=== PATIENT | female | born 1945 | race Caucasian/White ===

== ENCOUNTER 2019-12-06 09:33 | Outpatient (CLI) | payer MEDICARE, OTHER, SELFPAY ==
--- NOTE | ~2019-12-06 | MM_ITS ---
EXAMINATION: MM screening [facility] BI w nasir HISTORY: Screening mammogram TECHNIQUE: Craniocaudal and mediolateral oblique 3-D tomosynthesis images were obtained and synthetic 2-D images were generated. CAD analysis was submitted and interpreted. COMPARISON: 05/24/2018, 03/21/2017, 10/08/2015 bilateral digital screening mammogram examinations BREAST PARENCHYMAL COMPOSITION: There are scattered areas of fibroglandular density....... FINDINGS: Stable mild fibroglandular asymmetry. There is no evidence of suspicious mass, calcificatio n, or architectural distortion to suggest malignancy in either breast. There has been no suspicious i nterval change. IMPRESSION: 1. No mammographic evidence of malignancy. 2. Recommend routine screening mammography in one year. BI-RADS Category 2: Benign finding(s). Reviewed, dictated and finalized at location A.
--- NOTE | ~2019-12-06 | DEXA_ITS ---
Bone Density Report Name: Gwen Barreto Age: 74 Sex: Female Ethnicity: White Date of : 1945 Indication: postmenopausal; height loss; cancer; hysterectomy; Referring Provider: Claudia Diaz Study: Bone densitometry was performed. Exam Date: December 06, 2019 Accession number: [id number] Bone Density: Region BMD T-score Z-score Classification AP Spine (L1, L2) 1.220 2.2 4.3 Normal World Health Organization criteria for BMD impression classify patients as: Normal (T-score at or above -1.0), Osteopenia (T-score between -1.0 and -2.5), or Osteoporosis (T-score at or below -2.5). Previous Exams: Region Exam Age BMD T-score BMD Change BMD Change Date g/cm2 vs Baseline vs Previous AP Spine(L1, L2) 12/06/2019 74 1.220 2.2 0.149(13.9%)# 0.081(7.1%)# 04/10/2013 68 1.140 1.5 0.068(6.3%)# 0.055(5.1%)# 12/07/2010 65 1.085 1.0 0.013(1.2%) 0.013(1.2%) 11/21/2007 62 1.072 0.8 *Denotes significance at 95% confidence level, LSC for AP Spine = 0.022 g/cm2 Clinical Information Provided by Patient: Has used the following medications: Vitamin D, Calcium Has the following medical conditions: Cancer, Hysterectomy Patient maximum height was 66 Menopause Age: 31 Drinks caffeinated beverages Onset of menses at age 13 Number of children 2 Impression: The patient has normal bone mass. No significant bone loss was observed. Discussion: LOW RISK OF FRACTURE; BONE DENSITY IS WELL ABOVE THE MINIMUM DESIRABLE LEVEL AND ABOVE AVERAGE FOR AGE AND SEX AT ALL SKELETAL SITES TESTED. This person's bone density is above expected limits for age and sex. This is rarely clinically significant, but should be pursued if there are significant musculoskeletal complaints. The patient should follow a healthful lifestyle (good nutrition with adequate calcium and vitamin D, and appropriate weight-bearing exercise). Follow-Up: Consider repeating this study in 5 years or sooner if there is some new clinical indication. Reported by: ANTOINETTE on 12/06/2019 10:04:00 AM. Reviewed, dictated and finalized at location [facility]
== END 2019-12-06 09:34 | disposition home or self-care (01) ==
PROVIDERS: PCP Family Medicine; Visit Provider Family Medicine
DX: Z12.31 Encounter for screening mammogram for malignant neoplasm of breast (principal); Z78.0 Asymptomatic menopausal state
CPT/HCPCS: 77063; 77067; 77080

== ENCOUNTER 2020-10-05 13:41 | Outpatient (CLI) | payer MEDICARE, OTHER, SELFPAY ==
--- NOTE | 2020-10-05 13:56 | ECG_ITS ---
Measurements Intervals [place] Rate: 66 P: 69 TX: 192 QRS: 29 QRSD: 100 T: 45 QT: 393 QTc: 414 Interpretive Statements SINUS RHYTHM INCOMPLETE RIGHT BUNDLE BRANCH BLOCK BASELINE ARTIFACT- I, II, III, AVR, AVL, AVF, V4-V6 BORDERLINE ECG Electronically Signed On 10-05-2020 14:47:44 WATER POLLUTION CONTROL TECHNICIAN by Kenan Castillo D.O.
[2020-10-05 14:40] LABS: Basophils Percent Auto 1.1 % (0.2-1.2); Eosinophils Absolute Auto 0.2 K/mm3 (0-0.3); Hematocrit 37.7 % (37.0-47.0); Hemoglobin 12.4 g/dL (12.0-15.0); Immature Granulocyte Absolute 0.01 K/mm3 (0.00-0.031); Immature Granulocyte Percent A 0.3 % (0-0.5); Lymphocytes Absolute Auto 0.89 K/mm3 (0.9-3.2); Mean Corpuscular HGB Conc 32.9 g/dl (32-36); Mean Corpuscular Hemoglobin 30.9 pg (26-34); Monocytes Absolute Auto 0.4 K/mm3 (0.1-0.6); Monocytes Percent Auto 10.2 % (2.6-8.5); Neutrophils Absolute Auto 2.2 K/mm3 (1.3-6.7); Neutrophils Percent Auto 60.4 % (45.5-73.1); Platelet Count Result 176 k/mm3 (150-375); Red Blood Count 4.01 M/mm3 (4.2-5.4); Red Cell Distribution Width 12.9 % (11.5-14.5); White Blood Count 3.7 K/mm3 (4.5-10.0)
[2020-10-05 14:54] LABS: Alanine Aminotransferase 22 U/L (4-35); Albumin Level 3.6 g/dL (3.5-5.1); Alkaline Phosphatase 53 U/L (38-126); Anion Gap 2 mmol/L (8-16); Aspartate Amino Transferase 27 U/L (14-36); Bilirubin,Total 0.6 mg/dL (0.2-1.3); Blood Urea Nitrogen 20 mg/dL (7-17); Calcium 8.3 mg/dL (8.4-10.2); Carbon Dioxide 30 mmol/L (22-30); Chloride 108 mmol/L (98-107); Estimated Glomerular Filt Rate > 60; Glucose 171 mg/dL (65-105); Potassium 3.7 mmol/L (3.4-5.0); Sodium 140 mmol/L (137-145)
== END 2020-10-05 13:42 | disposition home or self-care (01) ==
PROVIDERS: PCP Family Medicine; Visit Provider Physician Assistant Medical
DX: D72.819 Decreased white blood cell count, unspecified (principal); E78.2 Mixed hyperlipidemia; R42 Dizziness and giddiness; R07.9 Chest pain, unspecified; I45.10 Unspecified right bundle-branch block
CPT/HCPCS: 36415; 80053; 84443; 85025; 93005

== ENCOUNTER 2020-10-28 07:23 | Outpatient (CLI) | payer MEDICARE, OTHER, SELFPAY ==
--- NOTE | 2020-10-28 07:34 | ECHO_ITS ---
Patient Info Name: Gwen Barreto Age: 75 years : 1945 Gender: Female Ht: 65 in Wt: 240 lbs BSA: 2.29 m2 HR: 62 bpm BP: 137 / 87 mmHg Technical Quality: Good Exam Date: 10/28/2020 7:46 AM Exam Location: [facility] Patient Status: Outpatient Admit Date: 10/28/2020 Staff Ordering Physician: Claudia Diaz PAC Orthopedics Nurse: Justin Chandra RDCS, RT Attending Provider: Claudia Diaz PAC Referring Physician: Joe DAVIS; Exam Type: CA echo doppler color flow Study Info Indications R01.1 - Cardiac murmur, unspecified Complete two-dimensional, color flow and Doppler transthoracic echocardiogram is performed. Strain analysis performed. Summary 1. Complete two-dimensional, color flow and Doppler transthoracic echocardiogram is performed. 2. Left ventricular chamber dimension is normal. 3. Left ventricular systolic function is normal, estimated at 60-65%. 4. There is mildly increased left ventricular wall thickness. 5. The left ventricular diastolic function is grade I diastolic dysfunction. 6. E/e' 7 is not elevated. 7. Global longitudinal strain is normal at -17.6%. 8. The mitral valve has mildly calcified annulus. 9. There is mild mitral valve regurgitation. 10. Dilated inferior vena cava with >50% collapse upon inspiration consistent with normal right atrial pressure, 10 mmHg. Left Ventricle E/e' 7 is not elevated. Global longitudinal strain is normal at -17.6%. Left ventricular chamber dimension is normal. Left ventricular systolic function is normal, estimated at 60-65%. There is mildly increased left ventricular wall thickness. The left ventricular diastolic function is grade I diastolic dysfunction. Right Ventricle Right ventricular chamber dimension is normal. Right ventricular systolic function is normal. Left Atria Left atrial chamber dimension is normal. Right Atria Right atrial chamber dimension is normal. Aortic Valve The aortic valve is trileaflet. There is no aortic valve stenosis. There is no aortic valve regurgitation. Pulmonic Valve There is no pulmonic regurgitation. Mitral Valve The mitral valve has mildly calcified annulus. There is no mitral valve stenosis. There is mild mitral valve regurgitation. Tricuspid Valve There is no tricuspid valve regurgitation. Pericardium/Pleural There is no pericardial effusion. Inferior Vena Cava Dilated inferior vena cava with >50% collapse upon inspiration consistent with normal right atrial pressure, 10 mmHg. Aorta The aortic root size at the sinus of Valsalva is normal. Left Ventricular Outflow Tract Name Value Normal LVOT 2D LVOT Diameter 2.0 cm LVOT Doppler LVOT Peak Gradient 5 mmHg LVOT Mean Gradient 2 mmHg LVOT VTI 26 cm LVOT VTI/AV VTI Ratio 0.9 LVOT Stroke Volume 84 ml LVOT CO 4.8 l/min LVOT CI 2.1 l/min/m2 Mitral Valve
== END 2020-10-28 07:24 | disposition home or self-care (01) ==
PROVIDERS: PCP Family Medicine; Visit Provider Physician Assistant Medical
DX: R01.1 Cardiac murmur, unspecified (principal); R42 Dizziness and giddiness; I51.89 Other ill-defined heart diseases; I34.0 Nonrheumatic mitral (valve) insufficiency
CPT/HCPCS: 93306

== ENCOUNTER → 2020-11-21 01:05 | Outpatient (CLI) | payer MEDICARE, OTHER, SELFPAY ==
[2020-11-21 20:53] LABS: SARS-CoV-2 RNA PCR Negative
== END ==
PROVIDERS: PCP Family Medicine; Visit Provider Internal Medicine Gastroenterology
DX: Z01.812 Encounter for preprocedural laboratory examination (principal); Z20.822 Contact with and (suspected) exposure to COVID-19
CPT/HCPCS: C9803; U0003; U0005

== ENCOUNTER 2020-11-25 00:31 | Day surgery (SDC) | payer MEDICARE, OTHER, SELFPAY ==
[2020-11-12 13:16] VITALS: BMI 39.9
[2020-11-25 09:31] VITALS: BP 144/74; RESP 16; TEMP 36.4; O2SAT 99; BMI 40.3
[2020-11-25] MEDS: LACTATED RINGERS 1,000 ML 150 ML IV CONT (09:48)
--- NOTE | 2020-11-25 10:13 | WPDANESEPPF ---
Anes - Initial Pre Proc Eval Procedure: Operation Date: 11/25/20 10:30 Proposed Procedures p Esophagogastroduodenoscopy - Dairn Ernst MD Date/Time: 11/25/20 10:13 Surgeon: Darin Ernst MD Pre Op Diagnosis: Dysphagia Patient Data Age: 75 Gender: F Height: 5 ft 5 in Weight: 110 kg Last Vital Signs Temp 97.6 F 11/25/20 09:31 Resp 16 11/25/20 09:31 BP 144/74 H 11/25/20 09:31 Pulse Ox 99 11/25/20 09:31 Allergies Allergy/AdvReac Type Severity Reaction Status Date / Time nickel AdvReac Unknown REDNESS, Verified 11/25/20 09:30 IRRITATION Home Medications Medication Instructions Recorded Confirmed Type cholecalciferol (vitamin D3) 1,250 50,000 unit PO WEEKLY #8 cap 09/18/19 11/25/20 Rx mcg (50,000 unit) capsule celecoxib 200 mg capsule 200 mg PO DAILY #90 cap 09/30/20 11/25/20 Rx nystatin-triamcinolone 100,000 1 applic TOPICAL BID #30 g 09/30/20 11/25/20 Rx unit/g-0.1 % topical cream omeprazole 40 mg capsule,delayed 40 mg PO DAILY #30 cap 09/30/20 11/25/20 Rx release oxybutynin chloride 10 mg See Rx Instructions .ROUTE 09/30/20 11/25/20 Rx tablet,extended release 24 hr .COMPLEX #90 tablet rosuvastatin 10 mg tablet 10 mg PO DAILY #90 tablet 09/30/20 11/25/20 Rx Patient hx anesthesia problems: none Family hx anesthesia problems: none PMFSH Past Medical History Medical History (Updated 10/28/20 @ 11:09 by Claudia Diaz, [facility]) BMI 40.0-44.9, adult Dizziness Skin tags, multiple acquired Family History Family History Other Family history of type 2 diabetes mellitus Social History Social History Smoking packs per day: 1 Smoking cigarettes per day: 20.0 Smoking status: Former smoker Second hand tobacco smoke exposure: No Alcohol intake: current Drinks per week: 2 Substance use: never Substance use type: does not use Living arrangements: alone Spiritual care concerns: No Anes - Eval Final PreProcedure Day of Procedure 11/25/20 10:13 Patient weight: morbidly obese Heart: regular rate and rhythm Lungs: clear to auscultation Airway: Mallampati scale class III Neurological: alert and oriented Last oral intake: >/= 8 hours ASA classification: III Emergent: no Anesthetic plan: proceed Anesthesia type and monitoring: general GIVS and standard monitoring Informed Consent: The patient's anesthetic plan and its attendant risks and benefits were discussed with the patient/family/POA. Questions were solicited and answers provided to the satisfaction of the patient/family/POA.
--- NOTE | 2020-11-25 10:16 | PM.HPGS ---
History of Present Illness History of Present Illness Consent: Risks, benefits, and alternatives have been discussed and questions answered. Patient agrees to proceed with procedure. Chief complaint: Dysphagia Narrative: Gwen Barreto is a 75 year old female with dysphagia, never had egd Review of Systems Constitutional: Constitutional: Denies headache(s) and Denies weakness Eyes: Eyes: Denies blurry vision ENT: Reports Normal hearing present, Denies headache(s) and Denies neck pain Cardiovascular: Cardiovascular: Denies chest pain and Denies dyspnea Respiratory: Respiratory: Denies dyspnea Gastrointestinal: Gastrointestinal: Reports no additional gastrointestinal complaints Genitourinary: Genitourinary: Denies dysuria Musculoskeletal: Musculoskeletal: Denies neck pain Integumentary/Breasts: Skin/Breast: Denies dry skin Neurologic: Reports Normal hearing present, Denies headache(s) and Denies weakness Psychiatric: Psychiatric: Denies anxiety Endocrine: Endocrine: Denies change in body appearance Hematologic/Lymphatic: Hematologic/Lymphatic: Denies easy bleeding Allergic/Immunologic: Allergic/Immunologic: Denies urticaria PMFSH Past Medical History Medical History (Updated 10/28/20 @ 11:09 by Claudia Diaz [facility]) BMI 40.0-44.9, adult Dizziness Skin tags, multiple acquired Family History Family History Other Family history of type 2 diabetes mellitus Social History Social History Smoking packs per day: 1 Smoking cigarettes per day: 20.0 Smoking status: Former smoker Second hand tobacco smoke exposure: No Alcohol intake: current Drinks per week: 2 Substance use: never Substance use type: does not use Living arrangements: alone Spiritual care concerns: No Meds Home Medications and Allergies Home Medications Medication Instructions Recorded Confirmed Type cholecalciferol (vitamin D3) 1,250 50,000 unit PO WEEKLY #8 cap 09/18/19 11/25/20 Rx mcg (50,000 unit) capsule celecoxib 200 mg capsule 200 mg PO DAILY #90 cap 09/30/20 11/25/20 Rx nystatin-triamcinolone 100,000 1 applic TOPICAL BID #30 g 09/30/20 11/25/20 Rx unit/g-0.1 % topical cream omeprazole 40 mg capsule,delayed 40 mg PO DAILY #30 cap 09/30/20 11/25/20 Rx release oxybutynin chloride 10 mg See Rx Instructions .ROUTE 09/30/20 11/25/20 Rx tablet,extended release 24 hr .COMPLEX #90 tablet rosuvastatin 10 mg tablet 10 mg PO DAILY #90 tablet 09/30/20 11/25/20 Rx Allergies Allergy/AdvReac Type Severity Reaction Status Date / Time nickel AdvReac Unknown REDNESS, Verified 11/25/20 09:30 IRRITATION Vital Signs Vital Signs - 24 hr 11/25/20 09:31 Temperature 97.6 F Respiratory Rate 16 Blood Pressure 144/74 H Pulse Oximetry 99 Exam Const: General: comfortable and no acute distress HENMT: General nose exam: Normal nares present Eyes: General: appearance normal, both eyes and all related structures Neck: Neck: no JVD Resp: Auscultation: clear to auscultation bilaterally Cardio: Rate: regular rate Rhythm: regular rhythm GI: Inspection: non-distended GI Palp: Yes Soft to palpation Skin: General skin exam: normal color Neuro: General: gait normal Speech: normal speech Extrem: General: normal to inspection Psych: Mental Status: mental status grossly normal Assessment and Plan Assessment and plan (1) Dysphagia: Code(s): R13.10 - Dysphagia, unspecified Status: Acute Assessment and Plan: egd with bx, may need dilation based on findings
[2020-11-25] MEDS: BENZOCAINE (*SP) 60 ML SPRAY CAN (HURRICAINE) 1 SPRAY MUCOUS MEM (10:23)
[2020-11-25 10:34] VITALS: BP 91/40; PULSE 56; RESP 18; O2SAT 99
[2020-11-25 10:44] VITALS: BP 86/45; PULSE 56; RESP 18; O2SAT 100
[2020-11-25 10:54] VITALS: BP 96/45; PULSE 55; RESP 17; O2SAT 100
[2020-11-25 11:04] VITALS: BP 117/62; PULSE 54; RESP 17; O2SAT 99
== END 2020-11-25 11:08 | disposition home or self-care (01) ==
PROVIDERS: PCP Family Medicine; Visit Provider Internal Medicine Gastroenterology
PROC: 0DJ08ZZ Inspection of Upper Intestinal Tract, Via Natural or Artificial Opening Endoscopic (ICD-10-PCS; CPT 43235; principal; 2020-11-25 10:30)
DX: R13.19 Other dysphagia (principal); N18.9 Chronic kidney disease, unspecified; E78.5 Hyperlipidemia, unspecified; Z87.891 Personal history of nicotine dependence
CPT/HCPCS: 43239; 88305; J2704; J7120

== ENCOUNTER 2021-01-14 07:16 | Outpatient (CLI) | payer MEDICARE, OTHER, SELFPAY ==
--- NOTE | ~2021-01-14 | US_ITS ---
US abdomen complete EXAMINATION: US Abdomen Complete INDICATION: Right upper quadrant pain PROCEDURE: Realtime High Resolution abdomen ultrasound. COMPARISON: No prior studies for comparison FINDINGS: Gallbladder within normal limits. No gallstones, pericholecystic fluid, gallbladder wall t hickening or biliary dilatation. Common bile duct measures 3.6 mm. Liver echotexture is increased, consistent with fatty infiltration.. Pancreas within normal limits. Pancreatic tail is obscured by bowel gas. Spleen is unremarkeable. Renal echotexture is within norm al limits bilaterally without hydronephrosis, contour deforming mass or renal stone. Right kidney nilo sures 11 cm. Left kidney measures 10.3 cm. Visualized aspects of the aorta and IVC are within normal limits. Portal vein is patent. No sonograph ic Chandra's sign indicated by the technologist. IMPRESSION: 1: Hepatic steatosis. Reviewed, dictated and finalized at location A. IMPRESSION: 1: Hepatic steatosis.
== END 2021-01-14 07:17 | disposition home or self-care (01) ==
PROVIDERS: PCP Family Medicine; Visit Provider Physician Assistant Medical
DX: R10.11 Right upper quadrant pain (principal); K76.0 Fatty (change of) liver, not elsewhere classified
CPT/HCPCS: 76700

== ENCOUNTER 2021-04-15 10:23 | Outpatient (CLI) | payer MEDICARE, OTHER, SELFPAY ==
--- NOTE | ~2021-04-15 | MM_ITS ---
EXAMINATION: MM screening [facility] BI w nasir HISTORY: Screening TECHNIQUE: Craniocaudal and mediolateral oblique 3-D tomosynthesis images were obtained and synthetic 2-D images were generated. CAD analysis was submitted and interpreted. COMPARISON: Comparison to multiple prior studies sequentially, with oldest reviewed study dated 05/31. BREAST PARENCHYMAL COMPOSITION: There are scattered areas of fibroglandular density. FINDINGS: There is no evidence of suspicious mass, calcification, or architectural distortion to sugg est malignancy in either breast. There has been no suspicious interval change. IMPRESSION: 1. No mammographic evidence of malignancy. 2. Recommend routine screening mammography in one year. BI-RADS Category 1: Negative Reviewed, dictated and finalized at location A.
== END 2021-04-15 10:24 | disposition home or self-care (01) ==
LOC: ANHIMG 10:29
PROVIDERS: PCP Family Medicine; Visit Provider Family Medicine
DX: Z12.31 Encounter for screening mammogram for malignant neoplasm of breast (principal)
CPT/HCPCS: 77063; 77067

== ENCOUNTER 2023-05-17 15:22 | Emergency (ER) | payer MEDICARE, OTHER, SELFPAY ==
--- NOTE | ~2023-05-17 | XR_ITS ---
EXAMINATION: XR chest 2V DATE: 05/17/2023 15:56 INDICATION: Palpitations. Dyspnea. TECHNIQUE: Frontal and lateral views of the chest were obtained. COMPARISON: Chest single view 11/08/2006 FINDINGS: There is mild elevation of left hemidiaphragm. A calcified right lung nodule is consistent with old granulomatous disease. No pleural effusion or pneumothorax. The heart size is normal. IMPRESSION: 1. No acute cardiopulmonary disease. Reviewed, dictated and finalized at location E.
--- NOTE | ~2023-05-17 | CT_ITS ---
EXAMINATION: CTA chest PE protocol DATE: 05/17/2023 19:22 INDICATION: Dyspnea. TECHNIQUE: Computed tomography angiography (CTA) of the chest was performed with 100 mL Omnipaque-350 intravenous contrast timed to evaluate the pulmonary arteries. Coronal maximum intensity projection 3D-reconstructions were created by the technologist. Automated exposure control and iterative reconst ruction technique were employed. The dose-length product was 880.63 mGy-cm. COMPARISON: None. FINDINGS: The lungs demonstrate mild atelectasis. No pleural effusion. The heart size is normal. Ther e are coronary artery calcifications. No pericardial effusion. There is no pulmonary embolus. There a re bridging endplate osteophytes at multiple levels in the spine, consistent with diffuse idiopathic skeletal hyperostosis (DISH). IMPRESSION: 1. No pulmonary embolus. Reviewed, dictated and finalized at location E. IMPRESSION: 1. No pulmonary embolus.
--- NOTE | 2023-05-17 15:25 | ECG_ITS ---
Measurements Intervals [place] Rate: 78 P: 75 CT: 176 QRS: -16 QRSD: 92 T: 54 QT: 355 QTc: 407 Interpretive Statements SINUS RHYTHM RSR' IN V1 BORDERLINE ECG COMPARED TO ECG 10/05/2020 14:13:46 NO SIGNIFICANT CHANGES Electronically Signed On 05-17-2023 18:37:48 CDT by Eloy Lucio M.D.
[2023-05-17 15:31] VITALS: BP 135/82; PULSE 81; RESP 18; TEMP 36.4; O2SAT 96
[2023-05-17 15:36] LABS: Basophils Absolute Auto 0.1 K/mm3 (0.0-0.1); Basophils Percent Auto 1.3 % (0.2-1.2); Eosinophils Absolute Auto 0.1 K/mm3 (0-0.3); Eosinophils Percent Auto 2.9 % (0-4.4); Hemoglobin 14.1 g/dL (12.0-15.0); Lymphocytes Absolute Auto 1.23 K/mm3 (0.9-3.2); Lymphocytes Percent Auto 25.7 % (18.3-44.2); Mean Corpuscular Hemoglobin 31.3 pg (26-34); Mean Corpuscular Volume 97.8 fl (80-100); Mean Platelet Volume 11.1 fl (7.4-10.4); Monocytes Absolute Auto 0.4 K/mm3 (0.1-0.6); Monocytes Percent Auto 7.7 % (2.6-8.5); Neutrophils Percent Auto 62.4 % (45.5-73.1); Platelet Count Result 250 k/mm3 (150-375); Red Cell Distribution Width 12.9 % (11.5-14.5); White Blood Count 4.8 K/mm3 (4.5-10.0)
[2023-05-17 15:46] LABS: Alanine Aminotransferase 34 U/L (6-35); Albumin Level 4.3 g/dL (3.5-5.1); Alkaline Phosphatase 59 U/L (38-126); Anion Gap 9 mmol/L (8-16); Aspartate Amino Transferase 38 U/L (14-36); Bilirubin,Total 0.6 mg/dL (0.2-1.3); Blood Urea Nitrogen 20 mg/dL (7-17); Calcium 8.8 mg/dL (8.4-10.2); Carbon Dioxide 24 mmol/L (22-30); Chloride 107 mmol/L (98-107); Estimated CRCL calculation 64 ml/min; Estimated Glomerular Filt Rate > 60; Glucose 118 mg/dL (65-110); Lipase 37 U/L (23-300); Potassium 4.2 mmol/L (3.4-5.0); Sodium 140 mmol/L (137-145)
[2023-05-17 15:47] LABS: INR 0.9; Prothrombin Time 12.8 Seconds (11.1-14.7)
[2023-05-17 15:48] LABS: Partial Thromboplastin Time 43.2 SECONDS (22.3-36.8)
[2023-05-17 15:58] LABS: Troponin I < 0.012 ng/mL (0.000-0.034)
[2023-05-17 17:05] VITALS: BP 119/61; PULSE 69; RESP 18; O2SAT 97
--- NOTE | 2023-05-17 17:20 | ED.GENADULT ---
HPI - General Adult General Chief complaint: Arrhythmia/Palpitations Stated complaint: high heartrate/dizzy Time Seen by Provider: 05/17/23 16:59 Source: patient Mode of arrival: ambulatory Limitations: no limitations History of Present Illness HPI narrative: This is a 78-year-old female who presents to the ED with chief complaint of heart palpitations and shortness of breath for the past couple of weeks. Reports this is an intermittent problem. Reports that it mainly happens when she is up and walking. Reports she will become lightheaded at times and have trouble catching her breath. Reports that she has intermittent GERD symptoms in the central chest as well and is unsure if it is cardiac related. Denies any exertional component of pain. Main symptoms are palpitations and dyspnea. Denies vomiting, syncope, radiation of pain, abdominal pain, urinary problems, back pain, headache, numbness, weakness. Related Data Allergies Allergy/AdvReac Type Severity Reaction Status Date / Time nickel AdvReac Unknown REDNESS, Verified 05/17/23 17:06 IRRITATION Review of Systems Review of Systems: All systems as dictated in HPI [facility] Past Medical History Medical History Adult BMI 39.0-39.9 kg/sq m BMI 40.0-44.9, adult Dizziness Skin tags, multiple acquired Family History Family History Father No problems noted. 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 HEAD: Normocephalic, atraumatic. EYES: PERRLA and EOMI. ENT: Nares clear, no rhinorrhea or epistaxis. Mucous membranes moist. Oropharynx without tonsillar hypertrophy exudate or other lesions. NECK: Supple. No adenopathy or masses. CHEST: No respiratory distress. Clear to auscultation. No wheezes rales or rhonchi HEART: Regular rate and rhythm. No murmur heard. Normal peripheral pulses. ABDOMEN: Soft, nontender, nondistended, normal active bowel sounds. MSK: Normal range of motion. No edema. SKIN: Warm, dry, no rash. NEURO: Alert and oriented x3. No focal deficits. PSYCH: Normal mood and affect. Course Course Emergency Course: Reevaluation 1941: Patient states she is still feeling symptom-free and is ready to go home. Vital Signs Vital signs: Vital Signs Temperature 97.6 F 05/17/23 15:31 Pulse Rate 81 05/17/23 15:31 Respiratory Rate 18 05/17/23 15:31 Blood Pressure 135/82 05/17/23 15:31 Pulse Oximetry 96 05/17/23 15:31 Oxygen Delivery Room Air 05/17/23 15:31 Temperature 97.6 F 05/17/23 15:31 Pulse Rate 70 05/17/23 19:54 Respiratory Rate 15 05/17/23 19:54 Blood Pressure 128/78 05/17/23 19:54 Pulse Oximetry 100 05/17/23 19:54 Oxygen Delivery Room Air 05/17/23 15:31 Medical Decision Making MDM Narrative Medical decision making narrative: This is a 78-year-old female who presents to the ED with chief complaint of palpitations and shortness of breath intermittently for the past 2 weeks. Vitals are normal. EKG shows normal sinus rhythm. CBC and CMP are largely unremarkable. BUN only very slightly
[2023-05-17] MEDS: ASPIRIN 81 MG CHEWABLE TABLET 324 MG PO (17:33)
[2023-05-17 18:01] LABS: D Dimer 0.54 ug/mL (<0.48)
[2023-05-17 18:06] LABS: NT Pro B Type Natriuretic Pept 1010 pg/mL (19.9-100)
[2023-05-17 19:05] LABS: Troponin I < 0.012 ng/mL (0.000-0.034)
[2023-05-17 19:54] VITALS: BP 128/78; PULSE 70; RESP 15; O2SAT 100
== END 2023-05-17 19:55 | disposition home or self-care (01) ==
PROVIDERS: Emergency Medicine; Emergency Provider Physician Assistant; PCP Family Medicine
DX: R00.2 Palpitations (principal); R42 Dizziness and giddiness; R06.02 Shortness of breath
CPT/HCPCS: 36415; 71046; 71275; 80053; 83690; 83880; 84484; 85025; 85380; 85610; 85730; 93005; 99284; A9270; Q9967

== ENCOUNTER 2023-06-17 13:17 | Outpatient (CLI) | payer MEDICARE, OTHER, SELFPAY ==
--- NOTE | 2023-06-17 13:48 | ECHO_ITS ---
Patient Info Name: Gwen Barreto Age: 78 years : 1945 Gender: Female Ht: 65 in Wt: 235 lbs BSA: 2.26 m2 HR: 63 bpm BP: 169 / 103 mmHg Heart Rhythm: Sinus Arrhythmia Technical Quality: Good Exam Date: 06/17/2023 1:53 PM Exam Location: Echo Lab Patient Status: Outpatient Admit Date: 06/17/2023 Staff Ordering Physician: Claudia Diaz PAC Representative Phlebotomy Services: Olman Fischer RDCS Attending Provider: Claudia Diaz Referring Physician: Joe DAVIS; Exam Type: CA echo doppler color flow Study Info Indications - OTHER FORMS OF DYSPNEA Complete two-dimensional, color flow and Doppler transthoracic echocardiogram is performed. Summary 1. Complete two-dimensional, color flow and Doppler transthoracic echocardiogram is performed. 2. Left ventricular chamber dimension is normal. 3. Left ventricular systolic function is normal, estimated at 65-70%. 4. There is moderate concentric increased left ventricular wall thickness. 5. The left ventricular diastolic function is grade I diastolic dysfunction. 6. E/e' 5 is not elevated. 7. Left atrial chamber dimension is mildly enlarged. 8. Right atrial chamber dimension is mildly enlarged. 9. There is trace aortic valve regurgitation. 10. The mitral valve has mildly calcified annulus. 11. No pulmonary hypertension, estimated pulmonary arterial systolic pressure is 10 mmHg. Left Ventricle E/e' 5 is not elevated. Left ventricular chamber dimension is normal. Left ventricular systolic function is normal, estimated at 65-70%. There is moderate concentric increased left ventricular wall thickness. The left ventricular diastolic function is grade I diastolic dysfunction. Right Ventricle Right ventricular systolic function is normal and with normal TAPSE 1.9 cm. Right ventricular chamber dimension is normal. Left Atria Left atrial chamber dimension is mildly enlarged. Right Atria Right atrial chamber dimension is mildly enlarged. Aortic Valve The aortic valve is trileaflet. There is no aortic valve stenosis. There is trace aortic valve regurgitation. Pulmonic Valve There is no pulmonic regurgitation. Mitral Valve The mitral valve has mildly calcified annulus. There is no mitral valve stenosis. There is no mitral valve regurgitation. Tricuspid Valve There is no tricuspid valve regurgitation. No pulmonary hypertension, estimated pulmonary arterial systolic pressure is 10 mmHg. Pericardium/Pleural There is no pericardial effusion. Inferior Vena Cava Normal inferior vena cava with >50% collapse upon inspiration consistent with normal right atrial pressure, 5 mmHg. Aorta The aortic root size at the sinus of Valsalva is normal. Left Ventricular Outflow Tract Name Value Normal LVOT 2D LVOT Diameter 2.0 cm LVOT Doppler LVOT Peak Gradient 6 mmHg LVOT Mean Gradient 4 mmHg LVOT VTI 34 cm LVOT VTI/AV VTI Ratio 0.9 LVOT Stroke Volume 104 ml LVOT CO 5.0 l/min LVOT CI 2.2 l/min/m2 Pulmonic Valve
[2023-06-17 14:26] LABS: Anion Gap 9 mmol/L (8-16); Blood Urea Nitrogen 28 mg/dL (7-17); Calcium 8.7 mg/dL (8.4-10.2); Carbon Dioxide 29 mmol/L (22-30); Chloride 105 mmol/L (98-107); Estimated Glomerular Filt Rate > 60; Glucose 74 mg/dL (65-110); Potassium 3.9 mmol/L (3.4-5.0); Sodium 143 mmol/L (137-145)
[2023-06-17 14:33] LABS: NT Pro B Type Natriuretic Pept 97 pg/mL (19.9-100)
== END 2023-06-17 13:18 | disposition home or self-care (01) ==
LOC: ANHCARD 13:18
PROVIDERS: PCP Family Medicine; Visit Provider Physician Assistant Medical
DX: R06.09 Other forms of dyspnea (principal); R79.89 Other specified abnormal findings of blood chemistry; I51.89 Other ill-defined heart diseases; R00.2 Palpitations; R93.1 Abnormal findings on diagnostic imaging of heart and coronary circulation
CPT/HCPCS: 36415; 80048; 83880; 93306

== ENCOUNTER 2024-02-28 12:36 | Outpatient (CLI) | payer MEDICARE, OTHER, SELFPAY ==
--- NOTE | ~2024-02-28 | US_ITS ---
EXAMINATION: US soft tissue UE LT DATE: 02/28/2024 12:59 INDICATION: Left antecubital fossa lump TECHNIQUE: Multiple grayscale and Doppler ultrasound images of the abdomen were obtained. COMPARISON: None FINDINGS: There are couple regions in the subcutaneous fat at the left antecubital fossa which appear subtly ci rcumscribed from the surrounding fat but otherwise nearly indistinguishable from the surrounding fat with nearly identical echotexture and with minimally increased echogenicity. One of these measures 3. 1 x 0.8 x 2.3 cm. The second measures 3.6 x 1.0 x 2.3 cm. IMPRESSION: 1. A couple subtle masses in the subcutaneous fat at the left antecubital fossa with appearance most consistent with and statistically most likely to represent lipomas. Reviewed, dictated and finalized at location A. IMPRESSION: 1. A couple subtle masses in the subcutaneous fat at the left antecubital fossa with appearance most consistent with and statistically most likely to represen t lipomas.
== END 2024-02-28 12:37 | disposition home or self-care (01) ==
PROVIDERS: PCP Family Medicine; Visit Provider Physician Assistant Medical
DX: M79.89 Other specified soft tissue disorders (principal)
CPT/HCPCS: 76882

== ENCOUNTER 2025-06-19 08:23 | Outpatient (CLI) | payer MEDICARE, OTHER, SELFPAY ==
--- OUTSIDE RECORDS SUMMARY | 2025-06-19 08:43 | XMS_ITS | Clinical Summary ---
Author Organization [facility] Address [address] [place] [address] Care Team Providers Care Manager Wellness Name Role Phone Alberto Sparks MD Primary Care Provider [phone] Allergies Active Allergy Reactions Criticality Noted Date Comments Nickel Rash Medium 08/26/2013 Rash Medications oxybutynin XL (DITROPAN XL) 10 mg 24 hr tablet take 1 tablet by oral route every day 90 3 4 Active Additional Information Patient not taking.Reported on 04/21/2025 celecoxib (CeleBREX) 200 mg capsule take 1 capsule by oral route every day as needed 0 0 4 Active Additional Information Patient not taking.Reported on 04/21/2025 omega-3 fatty acids-fish oil (OMEGA 3 FISH OIL) 684-1,200 mg capsule,delayed release(DR/EC) take 1 Capsule by Oral route 2 times every day 0 0 4 Active Additional Information Patient not taking.Reported on 04/21/2025 rosuvastatin (CRESTOR) 10 mg tablet Take 1 tablet (10 mg total) by mouth daily Active cranberry conc-ascorbic acid 4,200-20 mg capsule Take by mouth Activ e [id number] -Lmfolate-algal 27 mg iron-1.13 mg-581.92 mg capsule Take by mouth Active turmeric root extract 500 mg capsule Take by mouth Active mag/aluminum/so d bicarb/alginc (ANTACID TABLET ORAL) Take 750 mg by mouth Active apixaban (Eliquis) 5 mg tablet Take 1 tablet by mouth twice daily 180 tablet 3 5 Active Gemtesa 75 mg tablet Take 75 mg by mouth daily Active Active Problems Problem Noted Date Diagnosed Date [place] (dyspnea on exertion) 10/03/2022 PAF (paroxysmal atrial fibrillation) 03/28/2022 Chest pain Chest pain, atypical Esophagitis Hyperlipidemia Dizziness Encounters Date Type Department Care Team Description 04/21/2025 9:30 AM CDT Office Visit [facility] [address] [facility] [address] [place] [address] To [place] MD PAF (paroxysmal atrial fibrillation) (Primary Dx); Mixed hyperlipidemia; [place] (dyspnea on exertion); Chest pain, unspecified type from Last 3 Months Surgical History Surgery Date Site/Laterality Comments KNEE SURGERY 2012 Knee surgery HYSTERECTOMY 1976 Hysterectomy BACK SURGERY 1994 Back Surgery TOTAL HIP ARTHROPLASTY 2001 Right Total Hip Replacement OTHER SURGICAL HISTORY 2005 Carpal tunnel R and L hands TOTAL KNEE ARTHROPLASTY 2005 Left Total Knee Replacement TOTAL KNEE ARTHROPLASTY 2013 Total Knee Replacement Medical History Medical History Date Comments Hx Other Medical Arrhythmias Heart murmur Dizziness Hyperlipidemia Acid indigestion Diverticulitis Arthritis Gout Family History Medical History Relation Name Comments COVID-19 Brother 1 Diabetes Brother 2 Arthritis Brother 3 COPD Brother 3 Leukemia Father Diabetes Mother Lung cancer Sister Relation Name Status Comments Brother 1 (Age 69) Brother 2 Alive Brother 3 Alive Father (Age 81) Mother (Age 56) Sister (Age 73) Social History Tobacco Use Types Packs/Day Years Used Date Smoking Tobacco: Former Smokeless Tobacco: Never Tobacco Cessation:Counseling Given: Not Answered Alcohol Use Standard Drinks/Week Comments Yes 0 (1 standard drink = 0.6 oz pur e alcohol) Comments No Sex and Gender Information Value Date Recorded Sex Assigned at Not on file Legal 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 Gender Identity Not on file Sexual Orientation Not on file Last Filed Vital Signs Vital Sign Reading Time Taken Comments Blood Pressure 138/80 04/21/2025 9:14 AM CDT Pulse 58 04/21/2025 9:14 AM CDT Temperature 37.2 C (99 F) 03/29/2019 11:37 AM CDT Respiratory Rate 16 04/21/2025 9:14 AM CDT Oxygen Saturation 98% 04/21/2025 9:14 AM CDT Inhaled Oxygen Concentration - - Weight 98.9 kg (218 lb) 04/21/2025 9:14 AM CDT Height 165.1 cm (5' 5) 04/21/2025 9:14 AM CDT Body Mass Index 36.28 04/21/2025 9:14 AM CDT Plan of Treatment Health Maintenance Due Date Last Done Comments Depression Screening 1947 Fall Risk Assessment 1945 Hepatitis C Screening 1945 Osteoporosis Screening-Bone Density Scan 1945 Hepatitis B Screening 1965 Well Visit 65+ 01/04/2012 Zoster Vaccine (2 of 3) 03/25/2012 01/29/2012 DTaP/Tdap/Td Vaccine (1 - Tdap) 07/01/2013 3 Influenza Vaccine (#1) 2025 Pneumococcal vaccine 65+ Completed 06/19/2018, 07/2012 Insurance MEDICARE COMMERCIAL GENERIC MEDICARE COMMERCIAL GENERIC Advance Directives For more information, please contact: [phone] Documents on File Type Date Recorded Patient Polisher Aluminum Expl anation ADVANCE DIRECTIVE 08/26/2013 12:00 AM PAM BAIRD WILL ADVANCE DIRECTIVE 08/26/2013 12:00 AM 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
[2025-06-19 08:57] LABS: Alanine Aminotransferase 26 U/L (6-35); Albumin Level 4.1 g/dL (3.5-5.1); Alkaline Phosphatase 60 U/L (38-126); Anion Gap 4 mmol/L (4-12); Aspartate Amino Transferase 29 U/L (14-36); Bilirubin,Total 0.7 mg/dL (0.2-1.3); Blood Urea Nitrogen 19 mg/dL (7-17); Calcium 8.9 mg/dL (8.4-10.2); Carbon Dioxide 30 mmol/L (22-30); Chloride 106 mmol/L (98-107); Cholesterol 129 mg/dL (0-200); Estimated Glomerular Filt Rate > 60; Glucose 103 mg/dL (65-110); HDL Direct 48 mg/dL; Hematocrit 41.3 % (37.0-47.0); Hemoglobin 13.4 g/dL (12.0-15.0); Immature Granulocyte Percent A 0.2 % (0-0.5); Lymphocytes Absolute Auto 1.11 K/mm3 (0.9-3.2); Mean Corpuscular HGB Conc 32.4 g/dl (32-36); Mean Corpuscular Hemoglobin 31.5 pg (26-34); Mean Corpuscular Volume 96.9 fl (80-100); Nucleated Red Blood Cells Absolute Auto 0.000 K/mm3 (0.0-0.012); Nucleated Red Blood Cells Perc 0.0 % (0.0-0.2); Platelet Count Result 189 k/mm3 (150-375); Potassium 4.4 mmol/L (3.4-5.0); Red Blood Count 4.26 M/mm3 (4.2-5.4); Sodium 140 mmol/L (137-145); Total Protein 6.7 g/dL (6.3-8.2); Triglycerides 90 mg/dL (<150); White Blood Count 4.4 K/mm3 (4.5-10.0)
[2025-06-19 09:07] LABS: NT Pro B Type Natriuretic Pept 97 pg/mL (19.9-100)
[2025-06-19 09:28] LABS: Thyroid Stimulating Hormone 2.340 uIU/mL (0.465-4.680)
[2025-06-19 09:51] LABS: Hemoglobin A1C 5.8 % (<5.7)
== END 2025-06-19 08:24 | disposition home or self-care (01) ==
PROVIDERS: PCP Family Medicine; Visit Provider Physician Assistant Medical
DX: E78.2 Mixed hyperlipidemia (principal); F41.9 Anxiety disorder, unspecified; F32.9 Major depressive disorder, single episode, unspecified; I51.89 Other ill-defined heart diseases; R06.09 Other forms of dyspnea; R73.03 Prediabetes
CPT/HCPCS: 36415; 80053; 80061; 83036; 83880; 84443; 85025